=== PATIENT | male | born 1950 | race Hispanic/Latino ===

== ENCOUNTER 2018-01-02 14:26 | Inpatient (IN) | payer MEDICARE ==
[2018-01-02] MEDS ORDERED: Fentanyl 100 MCG/2 ML VIAL ONE (15:16)
[2018-01-02] MEDS ORDERED: Ketorolac Tromethamine 30 MG/ML VIAL ONE (15:16)
[2018-01-02] MEDS ORDERED: Acetaminophen 500 MG TAB ONE (16:39)
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
[2018-01-02] MEDS ORDERED: Dextrose 5% in Water 1,000 ML IV PRN (17:24)
[2018-01-02] MEDS ORDERED: Ondansetron PF 4 MG/2 ML Vial IVP PRN (17:24)
[2018-01-02] MEDS ORDERED: Ondansetron ODT 4 MG TAB PO PRN (17:24)
[2018-01-02] MEDS ORDERED: Dextrose 50% Abboject 50 ML SYRINGE SLOW IVP PRN (17:24)
[2018-01-02] MEDS ORDERED: HumaLOG 300 UNITS/3 ML VIAL SC PRN (17:24)
[2018-01-02] MEDS ORDERED: hydrALAZINE 20 MG/ML VIAL SLOW IVP PRN (17:27)
[2018-01-02] MEDS ORDERED: Rib Fracture Protocol PO SCH (17:30)
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
[2018-01-02 18:18] LABS: CKMB 4.3 ng/mL (0-6.6); Troponin I Less than 0.010 ng/mL (< 0.028)
[2018-01-02] MEDS ORDERED: Cyclobenzaprine 10 MG TAB PO PRN (19:00)
[2018-01-02] MEDS: Senokot S 8.6-50 MG TAB PO SCH (21:04)
[2018-01-02] MEDS: Gabapentin 100 MG CAP PO SCH (21:04)
[2018-01-02 22:44] VITALS: BMI 37.4
[2018-01-02] MEDS: traMADol HCl 50 MG TAB PO SCH (23:49)
[2018-01-02] MEDS: Ibuprofen 600 MG TAB PO SCH (23:49)
[2018-01-02] MEDS: Acetaminophen 500 MG TAB PO SCH (23:49)
[2018-01-03] MEDS: Acetaminophen 500 MG TAB PO SCH ×2 (05:33→12:30)
[2018-01-03] MEDS: traMADol HCl 50 MG TAB PO SCH ×2 (05:33→12:29)
[2018-01-03] MEDS: Ibuprofen 600 MG TAB PO SCH (05:33)
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
[2018-01-03] MEDS: Senokot S 8.6-50 MG TAB PO SCH (08:00)
[2018-01-03] MEDS: Gabapentin 100 MG CAP PO SCH (08:00)
[2018-01-03] MEDS ORDERED: Polyethylene Glycol 3350 17 GM Packet PO SCH (09:00)
[2018-01-03] MEDS ORDERED: Prevnar 13-Val Conj/PF 0.5 ML SYRINGE IM ONE (09:00)
[2018-01-03 12:04] VITALS: BP 138/81; TEMP 97.7
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
== END 2018-01-03 14:33 | disposition home or self-care (01) | DRG 206 ==
LOC: ERS 14:26 → ERHOLD 16:04 → SURG A 18:46
PROVIDERS: ADMIT Surgery; ATTEND Surgery
DX: S22.31XA Fracture of one rib, right side, initial encounter for closed fracture (principal); V49.9XXA Car occupant (driver) (passenger) injured in unspecified traffic accident, initial encounter; E11.9 Type 2 diabetes mellitus without complications; I10 Essential (primary) hypertension
CPT/HCPCS: 36415; 36416; 71045; 90471; 90662; 90670; 94640; 96374; 96375; G0008; G0009; G0390; J1885; J3010; J7620

== ENCOUNTER 2018-01-10 09:50 | Outpatient (CLI) | payer MEDICARE, OTHER ==
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
== END 2018-01-10 09:51 | disposition home or self-care (01) ==
LOC: RAD 09:50
PROVIDERS: ATTEND Physician Assistant
DX: S22.41XD Multiple fractures of ribs, right side, subsequent encounter for fracture with routine healing (principal)
CPT/HCPCS: 71046